=== PATIENT | female | born 1950 | race African-American/Black ===

== ENCOUNTER → 2017-01-03 | Outpatient (CLI) | payer OTHER ==
[~2017-01-03] MED LIST: AMOXICILLIN 50500 M1 PO; ASPIRIN EC81 M1 PO; CALCIUM 500 WI1 EAC3 PO; CALCIUM 600 +1 EA11 PO; CIPROFLOXACIN500 M1 PO; ENALAPRIL MALEA20 MG PO; FISH OIL 1,0001 EAC5 PO; FLAGYL 250 MG250 MG PO; HYDROCHLOROTH12.5 MG PO; MINIPRIN81 MG PO; NORVASC5 MG PO; PRAVASTATIN SOD20 MG PO; PREDNISONE 5 MG5 M1 PO; WELCHOL 625 MG625 M1 PO; ZETIA10 MG PO
== END ==
LOC: RAD 01:57
DX: Z12.31 Encounter for screening mammogram for malignant neoplasm of breast (principal)

== ENCOUNTER → 2018-01-08 | Outpatient (CLI) | payer OTHER | LOC: RAD 08:00 | DX: Z12.31 Encounter for screening mammogram for malignant neoplasm of breast (principal) ==

== ENCOUNTER → 2018-03-26 | Outpatient (CLI) | payer OTHER | LOC: ULTRA 08:51 | DX: E04.2 Nontoxic multinodular goiter (principal) ==

== ENCOUNTER → 2019-01-08 | Outpatient (CLI) | payer OTHER | LOC: RAD 02:33 | DX: Z12.31 Encounter for screening mammogram for malignant neoplasm of breast (principal) ==

== ENCOUNTER → 2020-01-27 | Outpatient (CLI) | payer OTHER | LOC: BC 08:40 | DX: Z12.31 Encounter for screening mammogram for malignant neoplasm of breast (principal) ==

== ENCOUNTER → 2021-01-11 | Outpatient (CLI) | payer OTHER | LOC: ULTRA 11:02 | PROVIDERS: ATTEND Internal Medicine | DX: E04.2 Nontoxic multinodular goiter (principal) ==

== ENCOUNTER → 2021-01-26 | Outpatient (CLI) | payer OTHER | LOC: BC 10:16 | PROVIDERS: ATTEND Internal Medicine | DX: Z12.31 Encounter for screening mammogram for malignant neoplasm of breast (principal) ==

== ENCOUNTER → 2021-02-01 | Outpatient (CLI) | payer OTHER | LOC: ULTRA 13:37 | PROVIDERS: ATTEND Internal Medicine | DX: N60.01 Solitary cyst of right breast (principal); N63.10 Unspecified lump in the right breast, unspecified quadrant ==